=== PATIENT | female | born 1950 | race Caucasian/White ===

== ENCOUNTER 2023-03-29 13:22 | Outpatient (CLI) | payer MEDICARE, SELFPAY ==
--- NOTE | ~2023-03-29 | CT_ITS ---
EXAMINATION: CT abdomen pelvis wo/w con DATE: 03/29/2023 14:09 INDICATION: Microscopic hematuria TECHNIQUE: Computed tomography (CT) of the abdomen and pelvis was performed without intravenous contr ast. CT of the abdomen and pelvis was then performed with a total of 130 mL Omnipaque 350 intravenous contrast using a double-bolus technique for simultaneous opacification of the renal parenchyma and r enal collecting system. The dose-length product (DLP) was 1171.60 mGy-cm. Automated exposure control and iterative reconstruction technique were employed. COMPARISON: None FINDINGS: Minimal dependent atelectasis is present in the lung bases. The heart size is normal. The l iver, pancreas, gallbladder, and adrenal glands are normal. A 7 mm hypoattenuating lesion of the sple en likely represents a cyst or lymphangioma. A 2 mm hypoattenuating lesion of the right kidney is too small to characterize but likely represents a cyst. No stones are identified in the kidneys, ureters , or bladder. No hydronephrosis or hydroureter. No suspicious renal or urothelial lesion identified. There is a small volume of gas in the urinary bladder. Portions of the left ureter do not opacify how ever, no obstructing lesion is identified. There is calcified atherosclerosis of the aorta and many o f the other arteries No pathologically enlarged abdominal or pelvic lymph nodes are identified. No fr ee intraperitoneal gas or evidence of bowel obstruction. There is severe thoracic and lumbar spondylo sis. IMPRESSION: 1. No CT correlate for the patient's symptoms. Small volume of gas in the urinary bladder could refle ct recent catheterization. Clinically correlate. Reviewed, dictated and finalized at location F. IMPRESSION: 1. No CT correlate for the patient's symptoms. Small volume of gas in the urina ry bladder could reflect recent catheterization. Clinically correlate.
[2023-03-29 13:49] LABS: Estimated Glomerular Filt Rate > 60
== END 2023-03-29 13:23 | disposition home or self-care (01) ==
PROVIDERS: PCP Urology; Visit Provider Urology
DX: R31.29 Other microscopic hematuria (principal)
CPT/HCPCS: 74178; Q9967